=== PATIENT | male | born 1985 | race Two or more races ===

== ENCOUNTER 2017-03-17 14:37 | Emergency (ER) | payer MEDICAID ==
[~2017-03-17] VITALS: Ht 165.1 cm; Wt 74.8 kg
[2017-03-17 15:08] VITALS: BP 145/75
== END 2017-03-17 15:47 | disposition home or self-care (01) ==
LOC: ER 14:40
DX: S46.211A Strain of muscle, fascia and tendon of other parts of biceps, right arm, initial encounter (principal); X58.XXXA Exposure to other specified factors, initial encounter; Y93.72 Activity, wrestling; Y92.89 Other specified places as the place of occurrence of the external cause; Y99.8 Other external cause status
CPT/HCPCS: 99282; A4606; Z7610